=== PATIENT | female | born 1950 | race Caucasian/White ===

== ENCOUNTER → 2019-01-08 | Emergency (ER) | payer OTHER | END | disposition left against medical advice (07) | LOC: ER 20:58 | DX: Z53.20 Procedure and treatment not carried out because of patient's decision for unspecified reasons (principal) ==

== ENCOUNTER 2020-03-27 09:36 | Outpatient (CLI) | payer OTHER | END 2020-03-27 09:50 | disposition home or self-care (01) | LOC: NUCLEAR 09:36 | PROVIDERS: ATTEND Internal Medicine | DX: M81.0 Age-related osteoporosis without current pathological fracture (principal); E11.51 Type 2 diabetes mellitus with diabetic peripheral angiopathy without gangrene; E11.9 Type 2 diabetes mellitus without complications; E78.49 Other hyperlipidemia; E55.9 Vitamin D deficiency, unspecified; F41.8 Other specified anxiety disorders; F32.0 Major depressive disorder, single episode, mild; Z79.84 Long term (current) use of oral hypoglycemic drugs; E11.319 Type 2 diabetes mellitus with unspecified diabetic retinopathy without macular edema; B35.5 Tinea imbricata; I11.9 Hypertensive heart disease without heart failure; I70.0 Atherosclerosis of aorta; F39 Unspecified mood [affective] disorder ==

== ENCOUNTER 2021-01-07 10:35 | Emergency (ER) | payer OTHER ==
[~2021-01-07] VITALS: Ht 160 cm; Wt 61.2 kg
[2021-01-07] MEDS ORDERED: METFORMIN HCL500 M3 PO (11:16)
[2021-01-07] MEDS ORDERED: ZOCOR40 MG PO (11:17)
== END 2021-01-07 13:08 | disposition home or self-care (01) ==
LOC: ER 10:35
DX: S00.03XA Contusion of scalp, initial encounter (principal); S00.81XA Abrasion of other part of head, initial encounter; W18.09XA Striking against other object with subsequent fall, initial encounter; Y93.89 Activity, other specified; Y92.018 Other place in single-family (private) house as the place of occurrence of the external cause; Y99.8 Other external cause status

== ENCOUNTER 2021-04-28 01:02 | Emergency (ER) | payer OTHER ==
[~2021-04-28] VITALS: Ht 160 cm; Wt 61.2 kg
[~2021-04-28 01:02] MED LIST: METFORMIN HCL500 M3 PO; ZOCOR40 MG PO
[2021-04-28] MEDS ORDERED: VITAMIN D3125 MC2 PO (01:13)
[2021-04-28] MEDS ORDERED: KETO10TA2 PO (04:26)
== END 2021-04-28 04:34 | disposition home or self-care (01) ==
LOC: ER 01:02
DX: S52.592A Other fractures of lower end of left radius, initial encounter for closed fracture (principal); X58.XXXA Exposure to other specified factors, initial encounter; Y93.89 Activity, other specified; Y92.89 Other specified places as the place of occurrence of the external cause; Y99.8 Other external cause status

== ENCOUNTER 2021-05-20 08:02 | Emergency (ER) | payer OTHER ==
[~2021-05-20] VITALS: Ht 160 cm; Wt 61.2 kg
[~2021-05-20 08:02] MED LIST changes: +KETO10TA2 PO; +VITAMIN D3125 MC2 PO
[2021-05-20] MEDS ORDERED: KETO10TA2 PO (09:01)
== END 2021-05-20 10:20 | disposition home or self-care (01) ==
LOC: ER 08:02
DX: G89.11 Acute pain due to trauma (principal); M25.532 Pain in left wrist; S52.122S Displaced fracture of head of left radius, sequela; X58.XXXS Exposure to other specified factors, sequela

== ENCOUNTER 2021-07-07 07:28 | Outpatient (CLI) | payer OTHER | END 2021-07-07 07:38 | disposition home or self-care (01) | LOC: RAD 07:28 | PROVIDERS: ATTEND Orthopaedic Surgery | DX: S52.532A Colles' fracture of left radius, initial encounter for closed fracture (principal) ==

== ENCOUNTER 2021-09-29 07:51 | Outpatient (CLI) | payer OTHER | END 2021-09-29 08:01 | disposition home or self-care (01) | LOC: RAD 07:51 | PROVIDERS: ATTEND Orthopaedic Surgery | DX: M75.42 Impingement syndrome of left shoulder (principal); S52.532D Colles' fracture of left radius, subsequent encounter for closed fracture with routine healing ==

== ENCOUNTER 2022-04-29 06:28 | Outpatient (CLI) | payer OTHER | END 2022-04-29 06:29 | disposition home or self-care (01) | LOC: LAB 06:28 | PROVIDERS: ATTEND Internal Medicine | DX: E11.51 Type 2 diabetes mellitus with diabetic peripheral angiopathy without gangrene (principal); E78.5 Hyperlipidemia, unspecified; E55.9 Vitamin D deficiency, unspecified; F41.9 Anxiety disorder, unspecified; F32.0 Major depressive disorder, single episode, mild; Z79.84 Long term (current) use of oral hypoglycemic drugs; B35.5 Tinea imbricata; I11.9 Hypertensive heart disease without heart failure; F39 Unspecified mood [affective] disorder; E78.9 Disorder of lipoprotein metabolism, unspecified; H35.40 Unspecified peripheral retinal degeneration; H52.03 Hypermetropia, bilateral; F17.200 Nicotine dependence, unspecified, uncomplicated; Z12.11 Encounter for screening for malignant neoplasm of colon; M81.0 Age-related osteoporosis without current pathological fracture; Z12.31 Encounter for screening mammogram for malignant neoplasm of breast; G31.84 Mild cognitive impairment of uncertain or unknown etiology; R56.9 Unspecified convulsions; M54.9 Dorsalgia, unspecified; F44.4 Conversion disorder with motor symptom or deficit; E03.8 Other specified hypothyroidism; E78.2 Mixed hyperlipidemia; E03.3 Postinfectious hypothyroidism ==

== ENCOUNTER 2022-04-29 07:44 | Outpatient (CLI) | payer OTHER | END 2022-04-29 07:52 | disposition home or self-care (01) | LOC: TOM 07:44 | PROVIDERS: ATTEND Psychiatry & Neurology Clinical Neurophysiology | DX: G31.84 Mild cognitive impairment of uncertain or unknown etiology (principal); R56.9 Unspecified convulsions; M54.9 Dorsalgia, unspecified; F44.4 Conversion disorder with motor symptom or deficit; I63.89 Other cerebral infarction ==

== ENCOUNTER 2022-04-30 07:26 | Outpatient (CLI) | payer OTHER | END 2022-04-30 07:32 | disposition home or self-care (01) | LOC: LAB 07:26 | PROVIDERS: ATTEND Internal Medicine | DX: E11.51 Type 2 diabetes mellitus with diabetic peripheral angiopathy without gangrene (principal); E78.5 Hyperlipidemia, unspecified; E55.9 Vitamin D deficiency, unspecified; F41.9 Anxiety disorder, unspecified; F32.0 Major depressive disorder, single episode, mild; Z79.84 Long term (current) use of oral hypoglycemic drugs; E11.319 Type 2 diabetes mellitus with unspecified diabetic retinopathy without macular edema; B35.5 Tinea imbricata; I11.9 Hypertensive heart disease without heart failure; I70.0 Atherosclerosis of aorta; F39 Unspecified mood [affective] disorder; E78.9 Disorder of lipoprotein metabolism, unspecified; H35.40 Unspecified peripheral retinal degeneration; H52.03 Hypermetropia, bilateral; F17.200 Nicotine dependence, unspecified, uncomplicated; Z12.11 Encounter for screening for malignant neoplasm of colon; M81.0 Age-related osteoporosis without current pathological fracture; Z12.31 Encounter for screening mammogram for malignant neoplasm of breast ==

== ENCOUNTER 2022-12-11 09:36 | Emergency (ER) | payer OTHER ==
[~2022-12-11] VITALS: Ht 160 cm; Wt 61.2 kg
== END 2022-12-11 14:31 ==
LOC: ER 09:36
DX: B34.9 Viral infection, unspecified (principal); R05.9 Cough, unspecified; E78.5 Hyperlipidemia, unspecified; E11.9 Type 2 diabetes mellitus without complications; Z79.84 Long term (current) use of oral hypoglycemic drugs; Z88.0 Allergy status to penicillin

== ENCOUNTER 2022-12-17 07:16 | Emergency (ER) | payer OTHER ==
[~2022-12-17] VITALS: Ht 160 cm; Wt 61.2 kg
[2022-12-17] MEDS ORDERED: PROAIR RESPICL90 MCG IH (10:57)
== END 2022-12-17 11:42 | disposition home or self-care (01) ==
LOC: ER 07:16
DX: J44.9 Chronic obstructive pulmonary disease, unspecified (principal); R09.81 Nasal congestion; Z88.0 Allergy status to penicillin; E11.9 Type 2 diabetes mellitus without complications; Z79.84 Long term (current) use of oral hypoglycemic drugs; Z20.822 Contact with and (suspected) exposure to COVID-19

== ENCOUNTER 2023-03-11 09:45 | Outpatient (CLI) | payer OTHER ==
[~2023-03-11 09:45] MED LIST changes: +PROAIR RESPICL90 MCG IH
== END 2023-03-11 09:58 | disposition home or self-care (01) ==
LOC: MAMO-SONO 09:45
PROVIDERS: ATTEND Surgery
DX: D24.2 Benign neoplasm of left breast (principal)

== ENCOUNTER 2025-07-05 08:39 | Emergency (ER) | payer OTHER ==
[~2025-07-05] VITALS: Ht 160 cm; Wt 61.2 kg
== END 2025-07-05 09:37 | disposition home or self-care (01) ==
LOC: ER 08:48
DX: L72.3 Sebaceous cyst (principal); Z88.0 Allergy status to penicillin

== ENCOUNTER 2025-08-06 09:16 | Outpatient (CLI) | payer OTHER | END 2025-08-06 09:22 | disposition home or self-care (01) | LOC: MRI 09:16 | PROVIDERS: ATTEND Surgery | DX: R22.2 Localized swelling, mass and lump, trunk (principal) | CPT/HCPCS: 73222; Q9965; 73223 ==

== ENCOUNTER 2025-09-23 08:30 | Outpatient (CLI) | payer OTHER | END 2025-09-23 08:31 | disposition home or self-care (01) | LOC: NUCLEAR 08:30 | DX: M81.0 Age-related osteoporosis without current pathological fracture (principal) ==